=== PATIENT | female | born 1960 | race Caucasian/White ===

== ENCOUNTER → 2017-12-25 | Outpatient (CLI) | payer BC ==
--- NOTE | 2017-12-28 09:36 | MM ---
Reason for exam: screening (asymptomatic). History: Patient is postmenopausal. Family history of breast cancer in mother at age 78. Physical Findings: A clinical breast exam by your physician is recommended on an annual basis and results should be correlated with mammographic findings. MG 3D Screening Mammo W/Cad Bilateral CC and MLO view(s) were taken. No prior studies available for comparison. There are scattered fibroglandular densities. Tiny circumscribed nodule upper outer quadrant right breast. Two circumscribed isodense nodules left breast anterior to middle depth, suspected benign. As patients priors are not available for comparison, 6 month follow up recommended. ASSESSMENT: Probably benign, BI-RAD 3 RECOMMENDATION: Follow-up diagnostic mammogram of the left breast in 6 months.
== END | disposition home or self-care (01) ==
LOC: RADMAMWWP 10:22
PROVIDERS: ATTEND Family Medicine
DX: Z12.31 Encounter for screening mammogram for malignant neoplasm of breast (principal)
CPT/HCPCS: 77063; 77067

== ENCOUNTER → 2018-06-17 | Outpatient (CLI) | payer BC ==
--- NOTE | 2018-06-20 10:02 | MM ---
Reason for exam: follow-up at short interval from prior study. Last mammogram was performed 6 months ago. History: Patient is postmenopausal and history of other cancer. Family history of breast cancer in mother at age 78. Physical Findings: Nurse did not find any significant physical abnormalities on exam. MG 3D Diag Mammo W/Cad LT CC and MLO view(s) were taken of the left breast. Prior study comparison: December 25, 2017, bilateral MG 3d screening mammo w/cad. Finding: There is a persistent 6 mm and 8 mm high density mass located 5-6 cm from the nipple in the 6 o'clock and 12 o'clock position of the left breast. These results were verbally communicated with the patient and result sheet given to the patient on 06/17/18. ASSESSMENT: Incomplete: need additional imaging evaluation, BI-RAD 0 RECOMMENDATION: Ultrasound of the left breast.
--- NOTE | 2018-06-20 10:03 | USB ---
Reason for exam: additional evaluation requested from abnormal screening. History: Patient is postmenopausal and history of other cancer. Family history of breast cancer in mother at age 78. US Breast Limited LT Left limited breast ultrasound including focal area of concern, retroareolar and axilla demonstrates a 0.3 x 0.3 x 0.3cm round, cystic, hypoechoic lesion at 2 o'clock and a 0.5 x 0.4 x 0.5cm oval, cystic lesion at 2 o'clock. These results were verbally communicated with the patient and result sheet given to the patient on 06/17/18. ASSESSMENT: Probably benign, BI-RAD 3 RECOMMENDATION: Follow-up diagnostic mammogram of both breasts in 6 months. Back on schedule for December 2018.
== END | disposition home or self-care (01) ==
LOC: RADMAMWWP 15:36
PROVIDERS: ATTEND Family Medicine
DX: R92.8 Other abnormal and inconclusive findings on diagnostic imaging of breast (principal)
CPT/HCPCS: 77061; 77065

== ENCOUNTER → 2022-06-04 | Outpatient (CLI) | payer BC ==
--- NOTE | 2022-06-04 14:18 | BD ---
EXAMINATION TYPE: Axial Bone Density DATE OF EXAM: 06/04/2022 CLINICAL HISTORY: 61 years old Female. ICD-10 CODE: Z78.0 POST MENOPAUSAL WITHOUT HRT Height: 60.2 Weight: 164 FRAX RISK QUESTIONS: History of Fracture in Adulthood: yes 5. Chronic liver disease: fatty liver RISK FACTORS HISTORY OF: hx of rt hand fx with hardware Postmenopausal woman: yes, ablation, estimate at age 58 per patient Hyperparathyroidism: no Adrenal Insufficiency: no MEDICATIONS: Thyroid Medications: yes, for about 1 yr now, synthroid product Additional Medications: Citalopram, ativan, reflux med, vit d, metformin Additional History: hx of skin cancer, anxiety, reflux, diabetic EXAM MEASUREMENTS: Bone mineral densitometry was performed using the Open [employer] System. Bone mineral density as measured about the Lumbar spine is: ----- L1-L4(G/cm2): 1.175 T Score Values are as follows: ----- L1: -0.8 ----- L2: -0.8 ----- L3: 0.0 ----- L4: 0.9 ----- L1-L4: 0.0 Z Score Values are as follows: ----- L1: 0.3 ----- L2: 0.3 ----- L3: 1.2 ----- L4: 2.0 ----- L1-L4: 1.1 Bone mineral density new to [facility] Bone mineral density about the R hip (g/cm2): 1.053 Bone mineral density about the L hip (g/cm2): 1.163 T Score values are as follows: -----R Neck: -0.9 -----L Neck: -1.0 -----R Total: 0.4 -----L Total: 1.2 Z Score values are as follows: -----R Neck: 0.2 -----L Neck: 0.1 -----R Total: 1.2 -----L Total: 2.1 Bone mineral density new to [facility] FRAX%s: The graph provided illustrates a 12.4% chance for a major osteoporotic fx and a 0.8% chance f or the hips probability for fx in 10 years time. IMPRESSION: Normal (Values between +1 and -1 indicate normal bone mass). Consider repeating this study in 5 year s or sooner if there is some new clinical indication. NOTE: T-SCORE=SD OF THE YOUNG ADULT MEAN.
--- NOTE | 2022-06-05 13:51 | MM ---
Reason for Exam: Clinical finding. Last mammogram was performed 4 year(s) and 5 month(s) ago. Patient History: Menarche at age 9. First Full-Term at age 21. Postmenopausal. Other cancer. Mother had breast cancer, age 78. Risk Values: Dian 5 year model risk: 3.2%. NCI Lifetime model risk: 14.0%. Prior Study Comparison: 12/25/2017 Bilateral Screening Mammogram, [facility]. 06/17/2018 Left Diagnostic Mammogram, [facility]. Tissue Density: There are scattered fibroglandular densities. Findings: Analyzed By CAD. Chronic nodularity lateral and medial left breast anterior and middle depth. Possible third area of nodularity laterally at a middle depth in the left breast does not persist on additional views. Some tortuous vascularity remains unchanged laterally in the right breast. No significant change from prior exams. Overall Assessment: Benign, BI-RAD 2 Management: Screening Mammogram of both breasts in 1 year. 1. Note that per NCCN guidelines, a five-year risk assessment greater than 1.67% is used to assess eligibility for a risk reducing agent. 2. Patient should continue monthly self breast exams. 3. This exam should not preclude additional follow-up of suspicious palpable abnormalities. Electronically signed and approved by: Haroon Jerez M.D. Radiologist
== END | disposition home or self-care (01) ==
LOC: RADBDWWP 07:53
PROVIDERS: ATTEND Family Medicine
DX: R92.8 Other abnormal and inconclusive findings on diagnostic imaging of breast (principal); E11.9 Type 2 diabetes mellitus without complications; Z78.0 Asymptomatic menopausal state; Z80.3 Family history of malignant neoplasm of breast
CPT/HCPCS: 77066; 77080

== ENCOUNTER → 2022-07-08 | Outpatient (CLI) | payer BC ==
--- NOTE | 2022-07-08 08:03 | US ---
EXAMINATION TYPE: US abdomen complete DATE OF EXAM: 07/08/2022 COMPARISON: NONE CLINICAL INDICATION: Female, 62 years old with history of R10.84 GENERALIZED ABDOMINAL PAIN; TECHNIQUE: Multiple sonographic images of the abdomen are obtained. FINDINGS: EXAM MEASUREMENTS: Liver Length: 20.1 cm CBD: 0.6 cm Spleen: 8.5 cm Right Kidney: 10.0 x 3.6 x 5.7 cm Left Kidney: 9.7 x 5.0 x 4.8 cm DIRECTOR OF SAFETY AND SECURITY NOTES: Pancreas: Tail obscured by overlying bowel gas; visualized portions appear wnl Liver: attenuating, heterogeneous, hepatomegaly Gallbladder: Surgically absent Evidence for sonographic Verdin's sign: no CBD: wnl Spleen: wnl Right Kidney: wnl Left Kidney: wnl Upper IVC: wnl Abd Aorta: wnl The liver is homogenous with increased echotexture. The intrahepatic portion of the IVC and proximal abdominal aorta are within normal limits. There is no evidence of cholelithiasis. Common bile duct is unremarkable. The visualized portions of the pancreas are homogenous. The spleen is unremarkabl e. Kidneys are symmetric and free of hydronephrosis. No renal lesions are seen. IMPRESSION: Hepatocellular disease commonly relating to hepatic steatosis. No suspicious masses.
== END | disposition home or self-care (01) ==
LOC: RADUSWWP 07:26
PROVIDERS: ATTEND Family Medicine
DX: K76.0 Fatty (change of) liver, not elsewhere classified (principal)
CPT/HCPCS: 76700

== ENCOUNTER → 2023-09-11 | Outpatient (CLI) | payer BC | END | disposition home or self-care (01) | LOC: LABWHC1 09:49 | PROVIDERS: ATTEND Psychiatry & Neurology Neurology | DX: R41.3 Other amnesia (principal); Z79.899 Other long term (current) drug therapy | CPT/HCPCS: 36415; 85652; 86141 ==